=== PATIENT | male | born 1970 | race American Indian/Alaskan Native ===

== ENCOUNTER 2018-05-02 13:41 | Inpatient (IN) ==
[2018-05-02] MEDS ORDERED: ONDANSETRON 4 MG/2 ML VIAL IV PRN ×2 (16:44→18:14)
[2018-05-02 17:28] LABS: Basophils # 0.1 10*3/uL (0.0-0.2); Basophils % 0.4 % (0.0-0.8); Eosinophils % 0.2 % (0.00-10.9); Hemoglobin 14.5 GM/DL (14.0-18.0); Immature Granulocytes % 2.1 %; Immature Granulocytes Absolute 0.29 #; Lymphocytes # 0.6 10*3/uL (1.4-4.0); Lymphocytes % 4.4 % (21.2-54.2); Mean Corpuscular HGB Conc 36.3 GM/DL (32-36); Mean Corpuscular Hemoglobin 32 PG (27-34); Mean Platelet Volume 11.1 FL (9.6-12.0); Monocytes # 1.4 10*3/uL (0.11-0.8); Monocytes % 10.1 % (1.7-12.7); Neutrophils # 11.3 10*3/uL (1.4-7.4); Neutrophils % 82.8 % (38.7-73.9); Platelet Count 84 T/CUMM (130-400); Red Cell Distribution Width 12.2 % (9.3-17.3); White Blood Count 13.6 T/CUMM (4-12)
[2018-05-02 17:36] LABS: PT Patient Result 10.7 SECS; Partial Thromboplastin Time 26.8 SECS (0-40)
[2018-05-02] MEDS: MEROPENEM 1,000 MG in SODIUM CHLORIDE 0.9% 100 ML IV SCH (17:45)
[2018-05-02 17:50] LABS: Bilirubin,Total 2.2 MG/DL (0.2-1.0); Calcium 8.7 MG/DL (8.5-10.1); Osmolality,Calculated 283.4 MOS/KG (273-304); Potassium 3.9 MMOL/L (3.5-5.1); Total Protein 6.8 G/DL (6.4-8.3)
[2018-05-02 18:05] LABS: Band Neutrophils 8 % (0-10); Eosinophils 1 % (0-10); Lymphocytes 8 % (20-55); Microcytosis Slight; Platelet Estimate Decreased; Segmented Neutrophils 76 % (50-85); Total Cells Counted 100
[2018-05-02] MEDS ORDERED: MEPERIDINE 25 MG/1 ML VIAL IV PRN (18:14)
[2018-05-02] MEDS ORDERED: PROMETHAZINE INJ 25 MG in SODIUM CHLORIDE 0.9% 50 ML IV PRN (18:14)
[2018-05-02] MEDS ORDERED: HYDROmorphone 2 MG/1 ML VIAL IV PRN (18:14)
[2018-05-02 18:36] LABS: Apearance,Urine CLEAR (Clear); Bilirubin,Urine Negative (Negative); Blood, Urine Negative (Negative); Glucose,Urine (UA) >=500 mg/dL (Negative); Ketones,Urine 20 mg/dL (Negative); Mucus,Urine Occasional /LPF (Occasional); Nitrite,Urine Negative (Negative); Protein,Urine Negative; RBC,Urine 1 /HPF (0-4); Urine Color Yellow (Yellow); Urine Specific Gravity 1.036 (1.001-1.035); WBC,Urine <1 /HPF (0-6)
[2018-05-02] MEDS ORDERED: SUGAMMADEX 200 MG/2 ML VIAL IV ONE (19:04)
[2018-05-02] MEDS ORDERED: PROPOFOL 200 MG/20 ML VIAL IV ONE (19:22)
[2018-05-02] MEDS ORDERED: LABETALOL 20 MG/4 ML SYRINGE IV ONE (19:22)
[2018-05-02] MEDS ORDERED: SEVOFLURANE 1 UNIT/15 MINUTE INH ONE (19:22)
[2018-05-02] MEDS ORDERED: ONDANSETRON 4 MG/2 ML VIAL ONE ×2 (19:23→19:33)
[2018-05-02] MEDS ORDERED: SUCCINYLCHOLINE 200 MG/10 ML VIAL ONE (19:23)
[2018-05-02] MEDS ORDERED: NEOSTIGMINE 10 MG/10 ML VIAL ONE (19:23)
[2018-05-02] MEDS ORDERED: MIDAZOLAM 2 MG/2 ML VIAL ONE (19:23)
[2018-05-02] MEDS ORDERED: LACTATED RINGERS 1,000 ML IV ONE (19:23)
[2018-05-02] MEDS ORDERED: fentaNYL 100 MCG/2 ML VIAL ONE (19:23)
[2018-05-02] MEDS ORDERED: ROCURONIUM 100 MG/10 ML VIAL IV ONE (19:23)
[2018-05-02] MEDS ORDERED: GLYCOPYRROLATE 0.4 MG/2 ML VIAL ONE ×2 (19:23)
[2018-05-02] MEDS ORDERED: MEPERIDINE 25 MG/1 ML VIAL ONE (19:32)
[2018-05-02] MEDS: VANCOMYCIN INJ 1,750 MG in SODIUM CHLORIDE 0.9% 500 ML IV SCH (20:20)
[2018-05-02] MEDS: SODIUM CHLORIDE 0.9% 1,000 ML IV SCH (20:20)
[2018-05-02] MEDS: INSULIN REGULAR 100 UNIT/ML SUBCUT SCH (22:00)
[2018-05-03] MEDS: INSULIN REGULAR 100 UNIT/ML SUBCUT SCH ×6 (01:03→22:41)
[2018-05-03] MEDS: MEROPENEM 1,000 MG in SODIUM CHLORIDE 0.9% 100 ML IV SCH ×3 (01:03→18:27)
[2018-05-03 05:53] LABS: Basophils % 0.3 % (0.0-0.8); Eosinophils % 0.2 % (0.00-10.9); Hematocrit 34.4 VOL% (42.0-52.0); Hemoglobin 12.4 GM/DL (14.0-18.0); Immature Granulocytes % 0.9 %; Immature Granulocytes Absolute 0.11 #; Lymphocytes # 0.9 10*3/uL (1.4-4.0); Lymphocytes % 6.9 % (21.2-54.2); Mean Corpuscular Hemoglobin 32 PG (27-34); Mean Corpuscular Volume 87.5 FL (87-102); Mean Platelet Volume 11.7 FL (9.6-12.0); Monocytes # 1.5 10*3/uL (0.11-0.8); Monocytes % 12.1 % (1.7-12.7); Neutrophils % 79.6 % (38.7-73.9); Platelet Count 80 T/CUMM (130-400); Red Blood Count 3.93 MC/CUMM (3.8-5.5); Red Cell Distribution Width 12.1 % (9.3-17.3); White Blood Count 12.6 T/CUMM (4-12)
[2018-05-03 06:14] LABS: Calcium 8.1 MG/DL (8.5-10.1); Osmolality,Calculated 282.8 MOS/KG (273-304); Potassium 3.6 MMOL/L (3.5-5.1)
[2018-05-03 06:17] LABS: Band Neutrophils 2 % (0-10); Eosinophils 2 % (0-10); Hypochromasia Slight; Lymphocytes 8 % (20-55); Microcytosis Slight; Platelet Estimate Decreased; Segmented Neutrophils 79 % (50-85); Total Cells Counted 100
[2018-05-03] MEDS: VANCOMYCIN INJ 1,750 MG in SODIUM CHLORIDE 0.9% 500 ML IV SCH ×2 (06:53→22:49)
[2018-05-03] MEDS: LISINOPRIL 10 MG TABLET PO SCH (09:36)
[2018-05-03] MEDS: HYDROmorphone 2 MG/1 ML VIAL IV PRN ×2 (09:41→15:22)
[2018-05-03] MEDS: NICOTINE 21 MG/24 HR PATCH TRANSDERM SCH (10:03)
[2018-05-03] MEDS ORDERED: DEXTROSE 50% 25 GM/50 ML SYRINGE IV PRN (13:04)
[2018-05-03] MEDS ORDERED: GLUCAGON 1 MG VIAL IM PRN (13:04)
[2018-05-03] MEDS ORDERED: PROPOFOL 200 MG/20 ML VIAL IV ONE (13:16)
[2018-05-03] MEDS ORDERED: fentaNYL 100 MCG/2 ML VIAL ONE (13:17)
[2018-05-03] MEDS ORDERED: MIDAZOLAM 2 MG/2 ML VIAL ONE (13:17)
[2018-05-03] MEDS ORDERED: SEVOFLURANE 1 UNIT/15 MINUTE INH ONE (13:17)
[2018-05-03] MEDS ORDERED: ONDANSETRON 4 MG/2 ML VIAL ONE (13:18)
[2018-05-03] MEDS: hydrALAZINE 20 MG/1 ML VIAL IV PRN (15:20)
[2018-05-03] MEDS: SODIUM CHLORIDE 0.9% 1,000 ML IV SCH (17:19)
[2018-05-03] MEDS: INSULIN GLARGINE 100 UNIT/ML SUBCUT SCH (22:41)
[2018-05-04] MEDS: SODIUM CHLORIDE 0.9% 1,000 ML IV SCH ×5 (01:47→18:43)
[2018-05-04] MEDS: INSULIN REGULAR 100 UNIT/ML SUBCUT SCH ×6 (01:55→22:22)
[2018-05-04] MEDS: MEROPENEM 1,000 MG in SODIUM CHLORIDE 0.9% 100 ML IV SCH ×2 (03:24→16:32)
[2018-05-04] MEDS: LISINOPRIL 10 MG TABLET PO SCH (08:40)
[2018-05-04] MEDS: VANCOMYCIN INJ 1,750 MG in SODIUM CHLORIDE 0.9% 500 ML IV SCH ×2 (08:45→22:25)
[2018-05-04 08:50] LABS: Basophils # 0.1 10*3/uL (0.0-0.2); Basophils % 0.5 % (0.0-0.8); Eosinophils # 0.2 10*3/uL (0.0-0.87); Eosinophils % 1.6 % (0.00-10.9); Hematocrit 37.7 VOL% (42.0-52.0); Hemoglobin 13.5 GM/DL (14.0-18.0); Immature Granulocytes % 1.8 %; Immature Granulocytes Absolute 0.17 #; Lymphocytes % 10.6 % (21.2-54.2); Mean Corpuscular HGB Conc 35.8 GM/DL (32-36); Mean Corpuscular Hemoglobin 32 PG (27-34); Mean Corpuscular Volume 88.1 FL (87-102); Mean Platelet Volume 11.4 FL (9.6-12.0); Monocytes # 1.5 10*3/uL (0.11-0.8); Monocytes % 15.3 % (1.7-12.7); Neutrophils # 6.7 10*3/uL (1.4-7.4); Neutrophils % 70.2 % (38.7-73.9); Platelet Count 102 T/CUMM (130-400); Red Blood Count 4.28 MC/CUMM (3.8-5.5); Red Cell Distribution Width 12.2 % (9.3-17.3); White Blood Count 9.5 T/CUMM (4-12)
[2018-05-04 09:00] LABS: Calcium 7.7 MG/DL (8.5-10.1); Osmolality,Calculated 278.1 MOS/KG (273-304); Potassium 3.2 MMOL/L (3.5-5.1)
[2018-05-04 09:13] LABS: Platelet Estimate Decreased
[2018-05-04] MEDS: NICOTINE 21 MG/24 HR PATCH TRANSDERM SCH (09:56)
[2018-05-04] MEDS ORDERED: POTASSIUM CHLORIDE RIDER 100 ML IV ONE (13:11)
[2018-05-04] MEDS ORDERED: PROPOFOL 200 MG/20 ML VIAL IV ONE (14:26)
[2018-05-04] MEDS ORDERED: ONDANSETRON 4 MG/2 ML VIAL ONE ×2 (14:26→14:43)
[2018-05-04] MEDS ORDERED: SEVOFLURANE 1 UNIT/15 MINUTE INH ONE (14:26)
[2018-05-04] MEDS ORDERED: GLUCAGON 1 MG VIAL IM PRN (14:30)
[2018-05-04] MEDS ORDERED: DEXTROSE 50% 25 GM/50 ML VIAL IV PRN (14:30)
[2018-05-04] MEDS ORDERED: POTASSIUM CHLORIDE 20 MEQ TABLET PO ONE (14:30)
[2018-05-04] MEDS: HYDROmorphone 2 MG/1 ML VIAL IV PRN ×5 (14:35→15:24)
[2018-05-04] MEDS ORDERED: fentaNYL 100 MCG/2 ML VIAL ONE (14:40)
[2018-05-04] MEDS ORDERED: MIDAZOLAM 2 MG/2 ML VIAL ONE (14:40)
[2018-05-04] MEDS ORDERED: HYDROmorphone 2 MG/1 ML VIAL ONE (14:43)
[2018-05-04] MEDS ORDERED: ONDANSETRON 4 MG/2 ML VIAL IV PRN (14:59)
[2018-05-04] MEDS ORDERED: PROMETHAZINE INJ 25 MG in SODIUM CHLORIDE 0.9% 50 ML IV PRN (14:59)
[2018-05-04] MEDS ORDERED: MEPERIDINE 25 MG/1 ML VIAL IV PRN (14:59)
[2018-05-04] MEDS ORDERED: hydrALAZINE 20 MG/1 ML VIAL ONE (15:15)
[2018-05-04] MEDS: hydrALAZINE 20 MG/1 ML VIAL IV PRN (15:19)
[2018-05-04] MEDS: INSULIN GLARGINE 100 UNIT/ML SUBCUT SCH (22:22)
[2018-05-05] MEDS: VANCOMYCIN INJ 1,750 MG in SODIUM CHLORIDE 0.9% 500 ML IV SCH ×4 (01:13→21:16)
[2018-05-05] MEDS: INSULIN REGULAR 100 UNIT/ML SUBCUT SCH ×6 (01:14→21:15)
[2018-05-05] MEDS: SODIUM CHLORIDE 0.9% 1,000 ML IV SCH ×4 (01:15→16:23)
[2018-05-05] MEDS: MEROPENEM 1,000 MG in SODIUM CHLORIDE 0.9% 100 ML IV SCH ×4 (02:28→18:24)
[2018-05-05 06:08] LABS: Basophils % 0.4 % (0.0-0.8); Eosinophils # 0.2 10*3/uL (0.0-0.87); Eosinophils % 2.1 % (0.00-10.9); Hematocrit 35.4 VOL% (42.0-52.0); Hemoglobin 12.5 GM/DL (14.0-18.0); Immature Granulocytes % 1.4 %; Lymphocytes # 0.9 10*3/uL (1.4-4.0); Lymphocytes % 12.5 % (21.2-54.2); Mean Corpuscular HGB Conc 35.3 GM/DL (32-36); Mean Corpuscular Hemoglobin 31 PG (27-34); Mean Corpuscular Volume 87.4 FL (87-102); Mean Platelet Volume 11.8 FL (9.6-12.0); Monocytes # 1.1 10*3/uL (0.11-0.8); Monocytes % 15.6 % (1.7-12.7); Neutrophils # 4.7 10*3/uL (1.4-7.4); Platelet Count 103 T/CUMM (130-400); Red Blood Count 4.05 MC/CUMM (3.8-5.5)
[2018-05-05 06:15] LABS: Calcium 7.6 MG/DL (8.5-10.1); Osmolality,Calculated 280.7 MOS/KG (273-304); Potassium 3.1 MMOL/L (3.5-5.1)
[2018-05-05 06:52] LABS: Band Neutrophils 2 % (0-10); Eosinophils 2 % (0-10); Hypochromasia 1+; Lymphocytes 12 % (20-55); Microcytosis Slight; Platelet Estimate Decreased; Segmented Neutrophils 74 % (50-85); Total Cells Counted 100
[2018-05-05] MEDS ORDERED: POTASSIUM CHLORIDE 20 MEQ TABLET PO ONE (08:41)
[2018-05-05] MEDS: LISINOPRIL 10 MG TABLET PO SCH (09:06)
[2018-05-05] MEDS: NICOTINE 21 MG/24 HR PATCH TRANSDERM SCH (09:07)
[2018-05-05] MEDS: HYDROmorphone 2 MG/1 ML VIAL IV PRN (09:40)
[2018-05-05] MEDS: INSULIN GLARGINE 100 UNIT/ML SUBCUT SCH (21:15)
[2018-05-06] MEDS: INSULIN REGULAR 100 UNIT/ML SUBCUT SCH ×6 (00:58→20:47)
[2018-05-06] MEDS: MEROPENEM 1,000 MG in SODIUM CHLORIDE 0.9% 100 ML IV SCH ×3 (02:37→18:38)
[2018-05-06] MEDS: SODIUM CHLORIDE 0.9% 1,000 ML IV SCH ×4 (02:41→22:40)
[2018-05-06] MEDS ORDERED: CHLORHEXIDINE 4% SOLN 118 ML BOTTLE TOP ONE (05:20)
[2018-05-06] MEDS: VANCOMYCIN INJ 1,750 MG in SODIUM CHLORIDE 0.9% 500 ML IV SCH ×3 (06:45→21:34)
[2018-05-06] MEDS: LISINOPRIL 10 MG TABLET PO SCH (08:42)
[2018-05-06] MEDS: NICOTINE 21 MG/24 HR PATCH TRANSDERM SCH (08:42)
[2018-05-06] MEDS: SODIUM HYPOCHLORITE 0.25% IRRIG 473 ML BOTTLE TOP SCH (08:43)
[2018-05-06] MEDS: HYDROmorphone 2 MG/1 ML VIAL IV PRN ×2 (10:33→22:30)
[2018-05-06] MEDS: metroNIDAZOLE 500 MG TABLET PO SCH (20:46)
[2018-05-06] MEDS: INSULIN GLARGINE 100 UNIT/ML SUBCUT SCH (20:47)
[2018-05-07] MEDS: INSULIN REGULAR 100 UNIT/ML SUBCUT SCH ×6 (01:01→21:41)
[2018-05-07] MEDS: SODIUM CHLORIDE 0.9% 1,000 ML IV SCH ×3 (01:02→17:01)
[2018-05-07] MEDS: MEROPENEM 1,000 MG in SODIUM CHLORIDE 0.9% 100 ML IV SCH ×3 (02:43→18:25)
[2018-05-07] MEDS: VANCOMYCIN INJ 1,750 MG in SODIUM CHLORIDE 0.9% 500 ML IV SCH ×3 (05:45→23:48)
[2018-05-07] MEDS: hydrALAZINE 20 MG/1 ML VIAL IV PRN (05:49)
[2018-05-07] MEDS: LISINOPRIL 10 MG TABLET PO SCH (09:27)
[2018-05-07] MEDS: metroNIDAZOLE 500 MG TABLET PO SCH ×2 (09:27→21:41)
[2018-05-07] MEDS: SODIUM HYPOCHLORITE 0.25% IRRIG 473 ML BOTTLE TOP SCH (09:27)
[2018-05-07] MEDS: NICOTINE 21 MG/24 HR PATCH TRANSDERM SCH (09:27)
[2018-05-07] MEDS: HYDROmorphone 2 MG/1 ML VIAL IV PRN (10:05)
[2018-05-07] MEDS: INSULIN GLARGINE 100 UNIT/ML SUBCUT SCH (21:41)
[2018-05-07 22:05] VITALS: BP 178/89
== END 2018-05-08 00:05 | DRG 853 ==
LOC: SUATTDRO 15:31 → N.3E 15:31
PROVIDERS: ADMIT Internal Medicine; ATTEND Internal Medicine Geriatric Medicine